=== PATIENT | female | born 1955 | race Caucasian/White ===

== ENCOUNTER 2019-04-08 11:49 | Emergency (ER) | payer BC ==
[~2019-04-08] VITALS: Ht 162.6 cm; Wt 61.2 kg
[~2019-04-08 11:49] MED LIST: AMBIEN CR12.5 MG PO; AMBIEN10 MG PO; AMLODIPINE BESYL5 MG PO; AMLODIPINE PO; ASPIRIN325 MG PO; Aspirin PO; CYCLOBENZAPRINE5 MG PEG; FLEXERIL PO; HYDROCODONE PO; LEVAQUIN500 MG PO; LOSARTAN PO; LOSARTAN POTASS25 MG PO; MELOXICAM7.5 MG PO; NORCO 5-325 TA1 EACH PO; NORCO 7.5-3251 EACH PO; PEPCID20 MG PO; TYLENOL WITH C1 EACH PO
--- OUTSIDE RECORDS SUMMARY | 2019-04-08 11:53 | XMS REPORT ---
Author Author [facility] Address Unknown Phone Unavailable Care Team Providers Care Corporate Travel Manager Name Role Phone KAT VAUGHN Unavailable Unavailable Payers Payer Name Policy Type Policy Number Effective Date Expiration Date Problems This patient has no known problems. Allergies, Adverse Reactions, Alerts Allergy Name Allergy Type Status Severity Reaction(s) Onset Date Inactive Date Treating Clinician Comments No Known Allergies DA Active U 2015-12-12 00:00:00 Medications This patient has no known medications. Results Test Description Test Time Test Comments Text Results Atomic Results Result Comments - US TRANSVAGINAL NON OB 2018-10-14 07:57:00 Name: ANDREW BRADLEY [facility] : 1955 Age/S: 63 / F [address] [facility] Unit #: [id number] Loc: [place] [address] Phys: Wade Falcon MD Acct: [id number] Dis Date: Status: REG CLI PHONE #: [phone] Exam Date: 10/14/2018 [facility] FAX #: [phone] Reason: EXAMS: CPT CODE: [id number] [place] [address] EXAM: Pelvic and transvaginal ultrasound and duplex sonography; INFORMATION: Pelvic pain; TECHNIQUE AND FINDINGS: Transabdominal and transvaginal vaginal grayscale imaging was combined with color Doppler sonography and spectral analysis. The uterus measures 4.4 x 2.3 x 3.6 cm. Thin endometrial stripe, measuring 2 mm in thickness. No fluid collection within the endometrial canal. The ovaries of normal size and shape and with normal flow pattern on Doppler exam. The right ovary measures 1.4 x 0.7 x 1.1 cm. The left ovary measures 1.3 x 1.9 x 1.1 cm. No solid or cystic adnexal lesions. No free fluid within the cul-de-sac. IMPRESSION: Unremarkable pelvic ultrasound. at 0757 Reported and signed by: Dallas Dimas M.D. CC: Zachariah Jamison MD; Wade Falcon Technologist: DOMINGO PETERSON RT(R),RDMS Trnvtb Date/Time: 10/14/2018 (756) [email or web address] Orig Print D/T: S: 10/14/2018 (08) Probe: [id number] PAGE 1 Signed Report - US PELVIS COMPLETE 2018-10-14 07:57:00 Name: ANDREW BRADLEY ANDRE[facility] : 1955 Age/S: 63 / F [address] [facility] Unit #: [id number] Loc: [place] [address] Phys: Wade Falcon MD Acct: [id number] Dis Date: Status: REG CLI PHONE #: [phone] Exam Date: 10/14/2018753 FAX #: [phone] Reason: R10.2 EXAMS: CPT CODE: [id number] US PELVIS COMPLETE 50466 EXAM: Pelvic and transvaginal ultrasound and duplex sonography; INFORMATION: Pelvic pain; TECHNIQUE AND FINDINGS: Transabdominal and transvaginal vaginal grayscale imaging was combined with color Doppler sonography and spectral analysis. The uterus measures 4.4 x 2.3 x 3.6 cm. Thin endometrial stripe, measuring 2 mm in thickness. No fluid collection within the endometrial canal. The ovaries of normal size and shape and with normal flow pattern on Doppler exam. The right ovary measures 1.4 x 0.7 x 1.1 cm. The left ovary measures 1.3 x 1.9 x 1.1 cm. No solid or cystic adnexal lesions. No free fluid within the cul-de-sac. IMPRESSION: Unremarkable pelvic ultrasound. at 0757 Reported and signed by: Dallas Dimas M.D. CC: Zachariah Jamison MD; Wade Falcon Technologist: DOMINGO PETERSON RT(R),RDMS Trnvtb Date/Time: 10/14/2018 (075) [email or web address] Orig Print D/T: S: 10/14/2018 (0800) Probe: PAGE 1 Signed Report PELVIS AP 1-2 VIEWS [place] [address] Patient Name: ANDREW ARNOLD MR #: [id number] : 1955 Age/Sex: 61/F Req #: [id number] Adm Physician: KAT VAUGHN MD Ordered by: KAT VAUGHN MD Report #: [id number] Location: MED/SURG Room/Bed: [facility] Procedure: [id number] DX/PELVIS AP 1-2 VIEWS Exam Date: 04/01/17 Exam Time: 09 REPORT STATUS: Signed PROCEDURE: X-RAY PELVIS, AP VIEW COMPARISON: CT pelvis 02/05/2017. INDICATIONS: POST OP FINDINGS: Refer to conclusion CONCLUSION: Interval total left hip arthroplasty with intact and appropriately positioned acetabular cup and femoral stem components. Interstitial and subcutaneous gas compatible with prior surgery. Right hip prosthesis is unchanged. No periprosthetic displaced fractures. Dictated by: Kat Taylor M.D. on 04/01/2017 at 10:20 Electronically approved by: Kat Taylor M.D. on 04/01/2017 at 10:20 Dictated By: KAT TAYLOR MD 1020 Transcribed By: BHAVIK on 04/01/17 1020 COPY TO: KAT VAUGHN MD
[2019-04-08] MEDS ORDERED: ASPIRIN 81 MG CHEW TAB PO ONE (12:30)
[2019-04-08 12:55] LABS: BASOPHILS % 0.1 % (0.0-1.0); EOSINOPHILS % 0.6 % (0.0-6.0); HEMATOCRIT 38.9 % (34.2-44.1); HEMOGLOBIN 13.4 g/dL (12.0-16.0); LYMPHOCYTES # (AUTO) 0.8 (1.0-3.2); LYMPHOCYTES % 11.7 % (18.0-39.1); MEAN CORPUSCULAR HEMOGLOBIN 30.5 pg (28-32); MEAN CORPUSCULAR HGB CONC 34.4 g/dL (31-35); MEAN CORPUSCULAR VOLUME 88.4 fL (81-99); MONOCYTES # (AUTO) 0.5 (0.2-0.8); MONOCYTES % 7.4 % (4.4-11.3); NEUTROPHILS # (AUTO) 5.4 (2.1-6.9); NEUTROPHILS % 79.9 % (38.7-80.0); PLATELET COUNT 256 x10e3/uL (140-360); RED CELL DISTRIBUTION WIDTH 12.7 % (11.7-14.4)
[2019-04-08 12:58] LABS: INR 0.9; PROTHROMBIN TIME 12.6 seconds (11.9-14.5)
[2019-04-08 12:59] LABS: PARTIAL THROMBOPLASTIN TIME 28.1 seconds (23.8-35.5)
[2019-04-08 13:06] LABS: ALANINE AMINOTRANSFERASE 23 IU/L (0-55); ALBUMIN 4.4 g/dL (3.5-5.0); ALBUMIN/GLOBULIN RATIO 1.6 (0.8-2.0); ALKALINE PHOSPHATASE 69 IU/L (40-150); ANION GAP 13.7 mmol/L (8-16); BLOOD UREA NITROGEN 21 mg/dL (7-26); BUN/CREATININE RATIO 28 (6-25); CALCIUM 9.5 mg/dL (8.4-10.2); CARBON DIOXIDE 26 mmol/L (22-29); CHLORIDE 94 mmol/L (98-107); CREATINE KINASE 69 IU/L (29-168); CREATININE, SERUM 0.76 mg/dL (0.57-1.11); EST GLOMERULAR FILTRATION RATE > 60 ML/MIN (60-); GLUCOSE 91 mg/dL (74-118); POTASSIUM 3.7 mmol/L (3.5-5.1); SODIUM 130 mmol/L (136-145)
[2019-04-08 13:44] LABS: CLARITY,URINE CLEAR (CLEAR); COLOR,URINE YELLOW (YELLOW)
[2019-04-08 13:45] LABS: BILIRUBIN,URINE NEGATIVE (NEGATIVE); KETONES,URINE NEGATIVE (NEGATIVE); LEUKOCYTE ESTERASE ,URINE NEGATIVE (NEGATIVE); NITRITE,URINE NEGATIVE (NEGATIVE); PROTEIN,URINE DIPSTICK NEGATIVE (NEGATIVE); URINE UROBILINOGEN 0.2 mg/dL (0.2 - 1)
[2019-04-08 14:08] LABS: EPITHELIAL CELLS,URINE FEW /LPF
--- NOTE | 2019-04-08 14:24 | Diagnostic Imaging Report ---
EXAMINATION: CHEST SINGLE (PORTABLE) INDICATION: Shortness of breath COMPARISON: Chest radiograph of 02/05/2017 FINDINGS: LINES/TUBES:EKG leads overlie the chest. LUNGS:The lungs are well-inflated. No focal consolidation or pulmonary edema. PLEURA:No pleural effusion or pneumothorax. MEDIASTINUM:The cardiomediastinal silhouette appears normal in size and shape. BONES/SOFT TISSUES:No acute osseous injury. ABDOMEN:No free air under the diaphragm. IMPRESSION: No focal pneumonia or pulmonary edema. Signed by: Man Hong MD on 04/08/2019 2:21 PM
[2019-04-08 17:15] VITALS: BP 125/87
== END 2019-04-08 17:07 | disposition home or self-care (01) ==
LOC: ER 11:49
DX: R07.89 Other chest pain (principal); R06.02 Shortness of breath; I10 Essential (primary) hypertension
CPT/HCPCS: 36415; 71045; 80053; 81001; 82550; 82553; 83880; 84484; 85025; 85610; 85730; 93005; 99283

== ENCOUNTER 2019-06-07 15:08 | Emergency (ER) | payer OTHER ==
[~2019-06-07] VITALS: Ht 162.6 cm; Wt 61.2 kg
[2019-06-07] MEDS ORDERED: ASPIRIN 81 MG CHEW TAB PO ONE (15:30)
[2019-06-07 16:05] LABS: BASOPHILS % 0.1 % (0.0-1.0); EOSINOPHILS % 0.6 % (0.0-6.0); HEMATOCRIT 38.9 % (34.2-44.1); HEMOGLOBIN 12.9 g/dL (12.0-16.0); LYMPHOCYTES # (AUTO) 0.8 (1.0-3.2); LYMPHOCYTES % 11.1 % (18.0-39.1); MEAN CORPUSCULAR HEMOGLOBIN 30.1 pg (28-32); MEAN CORPUSCULAR HGB CONC 33.2 g/dL (31-35); MEAN CORPUSCULAR VOLUME 90.7 fL (81-99); MONOCYTES # (AUTO) 0.7 (0.2-0.8); MONOCYTES % 10.4 % (4.4-11.3); NEUTROPHILS # (AUTO) 5.2 (2.1-6.9); NEUTROPHILS % 77.5 % (38.7-80.0); PLATELET COUNT 269 x10e3/uL (140-360); RED BLOOD COUNT 4.29 x10e6/uL (3.6-5.1); RED CELL DISTRIBUTION WIDTH 13.2 % (11.7-14.4)
[2019-06-07 16:08] LABS: BILIRUBIN,URINE NEGATIVE (NEGATIVE); CLARITY,URINE CLEAR (CLEAR); COLOR,URINE YELLOW (YELLOW); KETONES,URINE NEGATIVE (NEGATIVE); LEUKOCYTE ESTERASE ,URINE NEGATIVE (NEGATIVE); NITRITE,URINE NEGATIVE (NEGATIVE); PROTEIN,URINE DIPSTICK NEGATIVE (NEGATIVE); URINE UROBILINOGEN 0.2 mg/dL (0.2 - 1)
[2019-06-07 16:10] LABS: INR 0.88; PROTHROMBIN TIME 12.4 seconds (11.9-14.5)
[2019-06-07 16:11] LABS: PARTIAL THROMBOPLASTIN TIME 22.3 seconds (23.8-35.5)
[2019-06-07 16:20] LABS: ALBUMIN/GLOBULIN RATIO 1.4 (0.8-2.0); ANION GAP 14.3 mmol/L (8-16); CALCIUM 9.5 mg/dL (8.4-10.2); CREATININE, SERUM 0.96 mg/dL (0.57-1.11); POTASSIUM 3.3 mmol/L (3.5-5.1)
[2019-06-07 16:26] LABS: BACTERIA,URINE RARE /HPF; CREATINE KINASE MB 3.2 ng/mL (0-5.0); EPITHELIAL CELLS,URINE RARE /LPF; RBC,URINE 0-5 /HPF (0-5); WBC,URINE (MAN) 0-5 /HPF (0-5)
--- NOTE | 2019-06-07 16:32 | Diagnostic Imaging Report ---
EXAMINATION: CHEST SINGLE (PORTABLE) COMPARISON: 04/08/2019 INDICATION: Shortness of breath ^ERMD ORDER ^[id number] ^1600 ^Y DISCUSSION: Frontal view of the chest obtained at 1608 hours. HEART AND MEDIASTINUM: The heart is normal in size. The aorta is tortuous. LINES: None. LUNGS: Diffuse hyperinflation consistent with COPD. No pneumonia or pulmonary edema. PLEURA: No pleural effusion or pneumothorax. BONES AND SOFT TISSUES: No focal osseous lesion. The soft tissues are normal. IMPRESSION: Pulmonary hyperinflation consistent with COPD. No new cardiopulmonary process. Signed by: Dr. Warren Medellin MD on 06/07/2019 4:29 PM
== END 2019-06-07 17:15 | disposition left against medical advice (07) ==
LOC: ER 15:08
DX: R06.09 Other forms of dyspnea (principal); R07.89 Other chest pain; I10 Essential (primary) hypertension; F17.210 Nicotine dependence, cigarettes, uncomplicated
CPT/HCPCS: 36415; 71045; 80053; 81001; 82550; 82553; 84484; 85025; 85610; 85730; 93005; 99284

== ENCOUNTER 2020-06-13 11:11 | Emergency (ER) | payer OTHER ==
[~2020-06-13] VITALS: Ht 162.6 cm; Wt 61.2 kg
[2020-06-13 11:50] LABS: BASOPHILS % 0.4 % (0.0-1.0); EOSINOPHILS % 0.7 % (0.0-6.0); HEMATOCRIT 38.9 % (34.2-44.1); HEMOGLOBIN 12.7 g/dL (12.0-16.0); LYMPHOCYTES # (AUTO) 0.9 (1.0-3.2); LYMPHOCYTES % 17.2 % (18.0-39.1); MEAN CORPUSCULAR HEMOGLOBIN 29.3 pg (28-32); MEAN CORPUSCULAR HGB CONC 32.6 g/dL (31-35); MEAN CORPUSCULAR VOLUME 89.8 fL (81-99); MONOCYTES # (AUTO) 0.5 (0.2-0.8); MONOCYTES % 8.8 % (4.4-11.3); NEUTROPHILS % 72.7 % (38.7-80.0); PLATELET COUNT 287 x10e3/uL (140-360); RED BLOOD COUNT 4.33 x10e6/uL (3.6-5.1); RED CELL DISTRIBUTION WIDTH 13.3 % (11.7-14.4)
[2020-06-13 12:02] LABS: INR 0.9; PROTHROMBIN TIME 12.6 seconds (11.9-14.5)
[2020-06-13] MEDS ORDERED: ONDANSETRON HCL INJ 2MG/ML 2ML 2 MG/ML VIAL IV STA (12:02)
[2020-06-13 12:11] LABS: ALANINE AMINOTRANSFERASE 21 IU/L (0-55); ALBUMIN 4.5 g/dL (3.5-5.0); ALBUMIN/GLOBULIN RATIO 1.6 (0.8-2.0); ALKALINE PHOSPHATASE 109 IU/L (40-150); ANION GAP 11.7 mmol/L (8-16); BLOOD UREA NITROGEN 20 mg/dL (7-26); BUN/CREATININE RATIO 25 (6-25); CALCIUM 9.2 mg/dL (8.4-10.2); CARBON DIOXIDE 29 mmol/L (22-29); CHLORIDE 100 mmol/L (98-107); CREATININE, SERUM 0.79 mg/dL (0.57-1.11); EST GLOMERULAR FILTRATION RATE > 60 ML/MIN (60-); GLUCOSE 104 mg/dL (74-118); POTASSIUM 4.7 mmol/L (3.5-5.1); SODIUM 136 mmol/L (136-145)
[2020-06-13] MEDS ORDERED: MORPHINE SULFATE INJ 4 MG/ML INJ 1ML IV ONE (12:15)
== END 2020-06-13 13:07 | disposition home or self-care (01) ==
LOC: ER 11:16
DX: R21 Rash and other nonspecific skin eruption (principal); I10 Essential (primary) hypertension; B19.20 Unspecified viral hepatitis C without hepatic coma; F41.9 Anxiety disorder, unspecified; Z96.643 Presence of artificial hip joint, bilateral
CPT/HCPCS: 36415; 80053; 85025; 85610; 99284

== ENCOUNTER 2020-08-02 11:14 | Emergency (ER) | payer OTHER ==
[~2020-08-02] VITALS: Ht 162.6 cm; Wt 61.2 kg
[2020-08-02] MEDS ORDERED: SODIUM CHLORIDE 0.9% 1000ML 1,000 ML IV STA (11:42)
[2020-08-02 12:18] LABS: BASOPHILS % 0.4 % (0.0-1.0); EOSINOPHILS # (AUTO) 0.1 (0.0-0.4); EOSINOPHILS % 1.2 % (0.0-6.0); HEMATOCRIT 43.1 % (34.2-44.1); MEAN CORPUSCULAR HEMOGLOBIN 29.4 pg (28-32); MEAN CORPUSCULAR HGB CONC 32.5 g/dL (31-35); MEAN CORPUSCULAR VOLUME 90.5 fL (81-99); MONOCYTES # (AUTO) 0.5 (0.2-0.8); MONOCYTES % 9.7 % (4.4-11.3); NEUTROPHILS # (AUTO) 3.3 (2.1-6.9); NEUTROPHILS % 68.3 % (38.7-80.0); PLATELET COUNT 259 x10e3/uL (140-360); RED BLOOD COUNT 4.76 x10e6/uL (3.6-5.1)
[2020-08-02 12:34] LABS: CLARITY,URINE CLEAR (CLEAR); COLOR,URINE YELLOW (YELLOW); INR 0.86; PROTHROMBIN TIME 12.2 seconds (11.9-14.5)
[2020-08-02 12:35] LABS: KETONES,URINE NEGATIVE (NEGATIVE); LEUKOCYTE ESTERASE ,URINE NEGATIVE (NEGATIVE); NITRITE,URINE NEGATIVE (NEGATIVE); PARTIAL THROMBOPLASTIN TIME 26.9 seconds (23.8-35.5); PROTEIN,URINE DIPSTICK NEGATIVE (NEGATIVE); URINE UROBILINOGEN 0.2 mg/dL (0.2 - 1)
[2020-08-02 12:45] LABS: ALANINE AMINOTRANSFERASE 23 IU/L (0-55); ALBUMIN 4.9 g/dL (3.5-5.0); ALBUMIN/GLOBULIN RATIO 1.5 (0.8-2.0); ALKALINE PHOSPHATASE 88 IU/L (40-150); BLOOD UREA NITROGEN 19 mg/dL (7-26); BUN/CREATININE RATIO 22 (6-25); CALCIUM 9.8 mg/dL (8.4-10.2); CARBON DIOXIDE 27 mmol/L (22-29); CHLORIDE 99 mmol/L (98-107); CREATINE KINASE 63 IU/L (29-168); CREATININE, SERUM 0.87 mg/dL (0.57-1.11); EST GLOMERULAR FILTRATION RATE > 60 ML/MIN (60-); GLUCOSE 95 mg/dL (74-118); MAGNESIUM 1.9 MG/DL (1.3-2.1); SODIUM 138 mmol/L (136-145)
[2020-08-02 12:47] LABS: BACTERIA,URINE RARE /HPF; EPITHELIAL CELLS,URINE RARE /LPF; WBC,URINE (MAN) 0-5 /HPF (0-5)
[2020-08-02 16:02] VITALS: BP 133/73
== END 2020-08-02 16:03 | disposition home or self-care (01) ==
LOC: ER 11:23
DX: R42 Dizziness and giddiness (principal); R51.9 Headache, unspecified; R94.31 Abnormal electrocardiogram [ECG] [EKG]; I10 Essential (primary) hypertension; B19.20 Unspecified viral hepatitis C without hepatic coma; F41.9 Anxiety disorder, unspecified; G47.00 Insomnia, unspecified; M25.552 Pain in left hip; G89.29 Other chronic pain; Z96.643 Presence of artificial hip joint, bilateral
CPT/HCPCS: 36415; 70450; 71045; 80053; 81001; 82550; 82553; 83735; 84484; 85025; 85610; 85730; 87086; 93005; 99284; J7030